=== PATIENT | male | born 1965 | race American Indian/Alaskan Native ===

== ENCOUNTER 2018-11-02 01:11 | Inpatient (IN) | payer OTHER ==
[2018-11-02 01:56] LABS: HEMOGLOBIN 13.8 g/dL (14.0-18.0); MEAN CELL VOLUME 87.6 fl (80.0-105.0); MEAN CORPUSCULAR HEMOGLOBIN 31.2 pg (25.0-35.0); MEAN CORPUSCULAR HGB CONC 35.7 g/dl (31.0-37.0); MEAN PLATELET VOLUME 8.8 fl (7.0-11.0); RBC 4.42 10^6/uL (3.5-6.1); RED CELL DISTRIBUTION WIDTH 12.1 % (11.5-14.5); WHITE BLOOD COUNT 8.3 10^3/uL (4.5-11.0)
[2018-11-02 02:07] LABS: ALB/GLOB RATIO 1.2 (1.1-1.8); ALBUMIN 3.7 g/dL (3.0-4.8); ALT/SGPT 37 U/L (7-56); AST/SGOT 31 U/L (17-59); BLOOD UREA NITROGEN 11 mg/dL (7-21); CALCIUM 8.5 mg/dL (8.4-10.5); GFR NON-AFRICAN AMERICAN > 60; LIPASE 59 U/L (23-300)
--- NOTE | 2018-11-02 02:09 | ED PDOC ---
Arrival/HPI - General Chief Complaint: Abdominal Pain Time Seen by Provider: 11/02/18 01:21 Historian: Patient - History of Present Illness Narrative History of Present Illness (Text): 11/02/18 02:04 53 year old male, whose past medical history includes esophagitis, presents to the emergency department with left lower abdominal discomfort, for a few days. Patient denies any associated nausea or vomiting. Patient informs of possible low grade fever earlier. Patient states last bowel movement was yesterday. Patient denies any chest pain, shortness of breath, back pain, urinary symptoms, headache, dizziness, or any other complaint. Time/Duration: < week Symptom Onset: Gradual Symptom Course: Unchanged Quality: Aching Activities at Onset: Light Context: Home Past Medical History - Provider Review Nursing Documentation Reviewed: Yes - Infectious Disease Hx of Infectious Diseases: None - Tetanus Immunization Tetanus Immunization: Unknown - Cardiac Hx Pacemaker: No - Pulmonary Hx Respiratory Disorders: Yes (Smokes 1pk/day) Hx Asthma: No Hx Bronchitis: No Hx Chronic Obstructive Pulmonary Disease (COPD): No Hx Emphysema: No Hx Pneumonia: No Hx Respiratory Aspiration: No Hx Respiratory Tract Infection: No Hx Sleep Apnea: No Hx Tuberculosis: No - Neurological Hx Paralysis: No - HEENT Hx HEENT Disorder: Yes (wears glasses) Hx Blind: No Hx Cataracts: No Hx Deafness: No Hx Difficulty Chewing: No Hx Epistaxis: No Hx Glaucoma: No Hx Macular Degeneration: No - Renal Hx Renal Disorder: No Hx Dialysis: No Hx Kidney Stones: No Hx Neurogenic Bladder: No Hx Pyelonephritis: No Hx Renal Cancer: No Hx Renal Failure: No - Endocrine/Metabolic Hx Endocrine Disorders: No Hx Adrenal Cancer: No Hx Diabetes Insipidus: No Hx Diabetes Mellitus Type 1: No Hx Diabetes Mellitus Type 2: No Hx Hyperthyroidism: No Hx Hypothyroidism: No Hx Systemic Lupus Erythematosus: No - Hematological/Oncological Hx Blood Transfusions: No Hx Blood Transfusion Reaction: No - Integumentary Hx Dermatological Disorder: No Hx Basal Cell Carcinoma: No Hx Eczema: No Hx Melanoma: No Hx Psoriasis: No Hx Squamous Cell Carcinoma: No - Musculoskeletal/Rheumatological Hx Musculoskeletal Disorders: Yes - Gastrointestinal Hx Gastrointestinal Disorders: Yes (bloating and gas) Hx Colostomy: No Hx Crohn's Disease: No Hx Diverticulitis: No Hx Gall Bladder Disease: No Hx Gastroesophageal Reflux: Yes Hx Gastrointestinal Ulcer: No Hx Ileostomy: No Hx Liver Failure: No Hx Pancreatitis: No HX Swallowing Problems: No - Genitourinary/Gynecological Hx Genitourinary Disorders: No Hx Hematuria: No Hx Incontinence: No Hx Prostate Problems: No Hx Sexually Transmitted Diseases: No Hx Urinary Tract Infection: No - Psychiatric Hx Emotional Abuse: No Hx Physical Abuse: No Hx Substance Use: Yes (COCAINE USE IN THE ) - Past Surgical History Past Surgical History: No Previous - Surgical History Hx Amputation: No Hx Appendectomy: No Hx Cardiac Catheterization: No Hx Cholecystectomy: No Hx Coronary Stent: No Hx Gastric Bypass Surgery: No Hx Hysterectomy: No Hx Inguinal Hernia Repair: No Hx Joint Replacement: No Hx Kidney Transplant: No Hx Liver Transplant: No Hx Mastectomy: No Hx Musculoskeletal Surgery: No Hx Open Heart Surgery: No Hx Orthopedic Surgery: No Hx Splenectomy: No Hx Valve Replacement: No - Anesthesia Hx Anesthesia Reactions: No Hx Malignant Hyperthermia: No - Suicidal Assessment Feels Threatened In Home Enviroment: No Family/Social History - Physician Review Nursing Documentation Reviewed: Yes Family/Social History: No Known Family HX Smoking Status: Heavy Smoker > 10 Cigarettes Daily Hx Alcohol Use: Yes (1/2 BOTTLE WINE PER DAY, NOW ONLY OCCASIONAL SINCE NEW YEARS) Frequency of alcohol use: Daily Hx Substance Use: Yes (COCAINE USE IN THE ) Substance used: cocaine Allergies/Home Meds Allergies/Adverse Reactions: Allergies No Known Allergies Allergy (Verified 02/06/16 10:36) Home Medications: Home Meds Medication Instructions Recorded Confirmed Omeprazole 40 mg PO DAILY 04/07/16 07/09/16 DiphenhydrAMINE [Benadryl] 1 tab PO Q8H PRN 07/09/16 07/09/16 Review of Systems - Physician Review All systems were reviewed & negative as marked: Yes - Review of Systems Constitutional: Fevers. absent: Night Sweats Respiratory: absent: SOB Cardiovascular: absent: Chest Pain Gastrointestinal: Abdominal Pain. absent: Nausea, Vomiting Genitourinary Male: Normal. absent: Dysuria, Urinary Output Changes Neurological: absent: Headache, Dizziness Physical Exam Vital Signs Reviewed: Yes Vital Signs Temp Pulse Resp BP Pulse Ox 11/02/18 01:24 98.4 F 78 18 153/74 H 97 Temperature: Afebrile Blood Pressure: Hypertensive Pulse: Regular Respiratory Rate: Normal Appearance: Positive for: Well-Appearing, Non-Toxic, Comfortable Pain Distress: None Mental Status: Positive for: Alert and Oriented X 3 - Systems Exam Head: Present: Atraumatic, Normocephalic Pupils: Present: PERRL Extroacular Muscles: Present: EOMI Conjunctiva: Present: Normal Mouth: Present: Moist Mucous Membranes Neck: Present: Normal Range of Motion Respiratory/Chest: Present: Clear to Auscultation, Good Air Exchange. No: Respiratory Distress, Accessory Muscle Use Cardiovascular: Present: Regular Rate and Rhythm, Normal S1, S2. No: Murmurs Abdomen: Present: Tenderness (Palpable tenderness to LLQ), Normal Bowel Sounds, Guarding (Voluntary guarding). No: Distention, Peritoneal Signs Back: Present: Normal Inspection. No: CVA Tenderness Upper Extremity: Present: Normal Inspection. No: Cyanosis, Edema Lower Extremity: Present: Normal Inspection. No: Edema Neurological: Present: GCS=15, CN II-XII Intact, Speech Normal Skin: Present: Warm, Dry, Normal Color. No: Rashes Psychiatric: Present: Alert, Oriented x 3, Normal Insight, Normal Concentration Medical Decision Making ED Course and Treatment: 11/02/18 02:11 Impression: 53 year old male presents with LLQ pain. Plan: -- CT ABD and Pelvis -- Reassess and disposition Prior Visits: Notes and results from previous visits were reviewed. Progress Notes: 11/02/18 04:32 T SCAN OF THE ABDOMEN AND PELVIS WITH CONTRAST. CLINICAL HISTORY: Lower abdominal pain. TECHNIQUE: Multiple axial and coronal CT images were obtained through the abdomen and pelvis after administration of intravenous contrast material. COMPARISON: 02/06/2016 11:16 AM EDT: CT\SD\SR: ANGIOGRAPHY DISECTION PROTOCOL COMMENTS: Mild prostatomegaly. Prostatic calcifications are noted. Mild diffuse thickening of the bladder. Colonic diverticulosis. Acute proximal sigmoid diverticulitis without perforation or abscess formation. The liver is of uniform attenuation without mass or defect. There is no intra or extrahepatic biliary ductal dilatation. The spleen is normal. The gallbladder is within normal limits. The pancreas is of normal contour and attenuation characteristics. There is no evidence of adrenal mass. Both kidneys demonstrate prompt and equal nephrograms. The kidneys are normal in size, shape and configuration. There is no evidence of renal or ureteral mass. No renal or ureteral calculi are identified. There is no hydroureter or hydronephrosis. No evidence for appendicitis. No evidence for small or large bowel obstruction. There is no evidence of abdominal ascites or lymphadenopathy. There is no evidence of intrinsic or extrinsic bladder mass. There is no pelvic ascites or lymphadenopathy. Images of the lung bases show no evidence of pleural or parenchymal mass. There are no pleural effusions. The bony structures are free of lytic or blastic lesions. IMPRESSION: Mild prostatomegaly. Prostatic calcifications are noted. Mild diffuse thickening of the bladder. Colonic diverticulosis. Acute proximal sigmoid diverticulitis without perforation or abscess formation. Thank you for your kind referral of this patient. Electronically signed on November 02, 2018 4:22:48 AM EDT by: Ciaran Bateman M.D., Certified by ABR, MSK, Neuroradiology 11/02/18 04:47 Spoke with durable medical equipment repairer and house doctor, Dr Dawn, who accepts to the hospitalist service. - RAD Interpretation Radiology Orders: 11/02/18 01:40 ABD & PELVIS IV CONTRAST ONLY [CT] Stat - Scribe Statement The provider has reviewed the documentation as recorded by the Cristoibekta Davis Provider Scribe Attestation: All medical record entries made by the Scribe were at my direction and personally dictated by me. I have reviewed the chart and agree that the record accurately reflects my personal performance of the history, physical exam, medical decision making, and the department course for this patient. I have also personally directed, reviewed, and agree with the discharge instructions and disposition. Disposition/Present on Arrival - Present on Arrival Any Indicators Present on Arrival: No History of DVT/PE: No History of Uncontrolled Diabetes: No Urinary Catheter: No History of Decub. Ulcer: No History Surgical Site Infection Following: None - Disposition Have Diagnosis and Disposition been Completed?: Yes Diagnosis: Diverticulitis Disposition: HOSPITALIZED Disposition Time: 04:33 Patient Plan: Admission Patient Problems: Current Active Problems Problem Status Onset Diverticulitis Acute Condition: STABLE
[2018-11-02] MEDS ORDERED: Iohexol 350 MG/100 ML VIAL ONE (02:21)
[2018-11-02] MEDS ORDERED: Sodium Chloride 0.9% 1,000 ML IV STA (03:19)
[2018-11-02] MEDS ORDERED: Piperacillin/Tazobact 3.375 gm 100 ML IV STA (04:31)
--- NOTE | 2018-11-02 04:48 | CP.PCM.HP ---
<Andry Hardin - Last Filed: 11/02/18 06:54> History of Present Illness - History of Present Illness History of Present Illness: Andry Hardin, PGY1 H&P for Dr. Dawn cc: "LLQ pain for a few days" Patient is a 53 year old male, whose past medical history includes Esophagitis presents to the emergency department with left lower quadrant abdominal pain that has been going on for a few days. He says he was also constipated for the past few days. He denies any nausea or vomiting. Patient says he has not experienced these symptoms before. He subjectively endorses low grade fever as well. He says last bowel movement was on Wednesday. Patient says he had a EGD/colonoscopy in the past (2 years ago) in which findings were normal. However, patient is not the best historian in regards to his medical history. Patient says he is due for a colonoscopy soon. Patient [place] [facility] [place] He has only come for ED visits for nausea and abdominal pain. A full 12 point ROS was conducted and unremarkable except as stated above. PMHx: Esophagitis PSHx: testicular cyst removal (1 year ago) Meds: omeprazole 40mg daily Allergies: NKDA SocialHx: previous cocaine use (many years ago) but now denies illicit drug use. Denies EtOH use. Denies smoking. FamHx: father from prostate cancer Present on Admission - Present on Admission Any Indicators Present on Admission: No Review of Systems - Review of Systems All systems: reviewed and no additional remarkable complaints except (as per HPI) Past Patient History - Infectious Disease Hx of Infectious Diseases: None - Tetanus Immunizations Tetanus Immunization: Unknown - Past Social History Smoking Status: Heavy Smoker > 10 Cigarettes Daily - CARDIAC Hx Pacemaker: No - PULMONARY Hx Respiratory Disorders: Yes (Smokes 1pk/day) Hx Asthma: No Hx Bronchitis: No Hx Chronic Obstructive Pulmonary Disease (COPD): No Hx Emphysema: No Hx Pneumonia: No Hx Respiratory Aspiration: No Hx Respiratory Tract Infection: No Hx Sleep Apnea: No Hx Tuberculosis: No - NEUROLOGICAL Hx Paralysis: No - HEENT Hx HEENT Problems: Yes (wears glasses) Hx Blind: No Hx Cataracts: No Hx Deafness: No Hx Difficulty Chewing: No Hx Epistaxis: No Hx Glaucoma: No Hx Macular Degeneration: No - RENAL Hx Chronic Kidney Disease: No Hx Dialysis: No Hx Kidney Stones: No Hx Neurogenic Bladder: No Hx Pyelonephritis: No Hx Renal (Kidney) Cancer: No Hx Renal Failure: No - ENDOCRINE/METABOLIC Hx Endocrine Disorders: No Hx Adrenal Cancer: No Hx Diabetes Insipidus: No Hx Diabetes Mellitus Type 1: No Hx Diabetes Mellitus Type 2: No Hx Hyperthyroidism: No Hx Hypothyroidism: No Hx Systemic Lupus Erythematosus: No - HEMATOLOGICAL/ONCOLOGICAL Hx Blood Transfusions: No Hx Blood Transfusion Reaction: No - INTEGUMENTARY Hx Dermatological Problems: No Hx Basil Cell: No Hx Eczema: No Hx Melanoma: No Hx Psoriasis: No Hx Squamous Cell: No - MUSCULOSKELETAL/RHEUMATOLOGICAL Hx Musculoskeletal Disorders: Yes - GASTROINTESTINAL Hx Gastrointestinal Disorders: Yes (bloating and gas) Hx Colostomy: No Hx Crohn's Disease: No Hx Diverticulitis: No Hx Gall Bladder Disease: No Hx Gastroesophageal Reflux: Yes Hx Ileostomy: No Hx Liver Failure: No Hx Pancreatitis: No HX Swallowing Problems: No - GENITOURINARY/GYNECOLOGICAL Hx Genitourinary Disorders: No Hx Hematuria: No Hx Incontinence: No Hx Prostate Problems: No Hx Sexually Transmitted Disorders: No Hx Urinary Tract Infection: No - PSYCHIATRIC Hx Emotional Abuse: No Hx Physical Abuse: No Hx Substance Use: Yes (COCAINE USE IN THE ) - SURGICAL HISTORY Hx Amputation: No Hx Appendectomy: No Hx Cardiac Catheterization: No Hx Cholecystectomy: No Hx Coronary Stent: No Hx Gastric Bypass Surgery: No Hx Hysterectomy: No Hx Joint Replacement: No Hx Kidney Transplant: No Hx Liver Transplant: No Hx Mastectomy: No Hx Musculoskeletal Surgery: No Hx Open Heart Surgery: No Hx Orthopedic Surgery: No Hx Splenectomy: No Hx Valve Replacement: No - ANESTHESIA Hx Anesthesia Reactions: No Hx Malignant Hyperthermia: No Meds Allergies/Adverse Reactions: Allergies Allergy/AdvReac Type Severity Reaction Status Date / Time No Known Allergies Allergy Verified 02/06/16 10:36 Physical Exam - Constitutional Appears: No Acute Distress - Head Exam Head Exam: ATRAUMATIC, NORMAL INSPECTION, NORMOCEPHALIC - Eye Exam Eye Exam: EOMI, Normal appearance - ENT Exam ENT Exam: Mucous Membranes Moist - Respiratory Exam Respiratory Exam: Clear to Auscultation Bilateral. absent: Chest Wall Tenderness, Rales, Rhonchi, Wheezes - Cardiovascular Exam Cardiovascular Exam: RRR, +S1, +S2 - GI/Abdominal Exam GI & Abdominal Exam: Normal Bowel Sounds, Soft, Tenderness (Lower abdominal tenderness; L > R ). absent: Firm, Guarding, Rebound, Rigid - Extremities Exam Extremities exam: Positive for: normal capillary refill, normal inspection, pedal pulses present - Back Exam Back exam: NORMAL INSPECTION - Neurological Exam Neurological exam: Alert, CN II-XII Intact, Oriented x3 - Psychiatric Exam Psychiatric exam: Normal Affect, Normal Mood - Skin Skin Exam: Dry, Intact, Normal Color, Warm Results - Vital Signs Recent Vital Signs: Last Vital Signs Temp 98.4 F 11/02/18 01:24 Pulse 78 11/02/18 01:24 Resp 18 11/02/18 01:24 BP 153/74 H 11/02/18 01:24 Pulse Ox 97 11/02/18 01:24 - Labs Result Diagrams: 11/02/18 01:47 11/02/18 01:47 Labs: Laboratory Results - last 24 hr 11/02/18 11/02/18 01:47 01:47 WBC 8.3 RBC 4.42 Hgb 13.8 L Hct 38.7 L MCV 87.6 MCH 31.2 MCHC 35.7 RDW 12.1 Plt Count 147 MPV 8.8 Sodium 137 Potassium 3.9 Chloride 105 Carbon Dioxide 26 Anion Gap 10 BUN 11 Creatinine 0.9 Est GFR ( Amer) > 60 Est GFR (Non-Af Amer) > 60 Random Glucose 109 Calcium 8.5 Total Bilirubin 0.6 AST 31 ALT 37 Alkaline Phosphatase 90 Total Protein 6.9 Albumin 3.7 Globulin 3.2 Albumin/Globulin Ratio 1.2 Lipase 59 Assessment & Plan - Assessment and Plan (Free Text) Assessment: Patient is a 53 year old male, whose past medical history includes GERD presents to the emergency department with left lower quadrant abdominal pain that has been going on for a few days. Plan: LLQ pain 2/2 Diverticulitis - Ceftriaxone 1g IVPB daily - Metronidazole 500mg IVPB q8 - No leukocytosis or fevers at this time - Toradol 15mg IVP q6 prn for moderate pain control - PTX 40mg IVP daily - NPO - IVF NS @ 100 cc/hr - BCx - GI consulted (Dr. Bonner) - CT A/P w/ contrast:Mild prostatomegaly.Prostatic calcifications are noted.Mild diffuse thickening of the bladder.Colonic diverticulosis. Acute proximal sigmoid diverticulitis without perforation or abscess formation. ppx: - scd - ptx Diet: NPO Dispo: will admit patient to med/surg. Follow up GI recs for acute di verticulitis. Case was discussed and reviewed with Attending Physician, Dr. Dawn <Snehal Dawn - Last Filed: 11/02/18 07:28> Results - Vital Signs Recent Vital Signs: Last Vital Signs Temp 98.4 F 11/02/18 01:24 Pulse 64 11/02/18 05:42 Resp 20 11/02/18 06:30 BP 127/73 11/02/18 05:42 Pulse Ox 96 11/02/18 05:42 - Labs Result Diagrams: 11/02/18 01:47 11/02/18 01:47 Labs: Laboratory Results - last 24 hr 11/02/18 11/02/18 01:47 01:47 WBC 8.3 RBC 4.42 Hgb 13.8 L Hct 38.7 L MCV 87.6 MCH 31.2 MCHC 35.7 RDW 12.1 Plt Count 147 MPV 8.8 Sodium 137 Potassium 3.9 Chloride 105 Carbon Dioxide 26 Anion Gap 10 BUN 11 Creatinine 0.9 Est GFR ( Amer) > 60 Est GFR (Non-Af Amer) > 60 Random Glucose 109 Calcium 8.5 Total Bilirubin 0.6 AST 31 ALT 37 Alkaline Phosphatase 90 Total Protein 6.9 Albumin 3.7 Globulin 3.2 Albumin/Globulin Ratio 1.2 Lipase 59 Attending/Attestation - Attestation I have personally seen and examined this patient.: Yes I have fully participated in the care of the patient.: Yes I have reviewed all pertinent clinical information: Yes Notes (Text): 11/02/18 07:26 Pt seen,case discussed in detail with the resident. Agree with documentation,assessment and plan of treatment.
[2018-11-02 06:58] VITALS: BMI 31.0
--- NOTE | 2018-11-02 08:12 | CT ---
Date of service: 11/02/2018 PROCEDURE: CT Abdomen and Pelvis with contrast HISTORY: left lower abdominal pain COMPARISON: None. TECHNIQUE: Intravenous contrast dose: 100 cc Omnipaque 350 Radiation dose: Total exam DLP = 900.52 mGy-cm. This CT exam was performed using one or more of the following dose reduction techniques: Automated exposure control, adjustment of the mA and/or kV according to patient size, and/or use of iterative reconstruction technique. FINDINGS: LOWER THORAX: Unremarkable. LIVER: Hepatic steatosis. No focal masses. No intrahepatic bile duct dilatation or perihepatic ascites. GALLBLADDER AND BILE DUCTS: Unremarkable. PANCREAS: Unremarkable. No gross lesion or ductal dilatation. SPLEEN: Splenomegaly, orthogonal measurements 7.8 x 16.2 cm. ADRENALS: Unremarkable. No mass. KIDNEYS AND URETERS: Unremarkable. No hydronephrosis. No solid mass. VASCULATURE: Unremarkable. No aortic aneurysm. No atherosclerotic calcification or mural plaque present. BOWEL: Severe diverticulitis affecting approximately 12 cm segment of the distal descending colon and sigmoid. Sparing of the distal sigmoid, unremarkable rectum. Perforations along the mesenteric and anti mesenteric border without significant loculated air, free air or drainable collection. APPENDIX: Normal appendix. PERITONEUM: Unremarkable. No free fluid. No free air. LYMPH NODES: Unremarkable. No enlarged lymph nodes. BLADDER: Unremarkable. REPRODUCTIVE: Unremarkable. BONES: No acute fracture. OTHER FINDINGS: None. IMPRESSION: Acute diverticulitis distal descending colon and proximal sigmoid colon. Micro perforations. No drainable collection, significant loculated air or free air. Splenomegaly. Concordant results (preliminary interpretation) provided by [employer]. Procedure Completed: :29 Preliminary Report: Interpreted and electronically signed: 04:22. Final Interpretation: 08:08.
[2018-11-02] MEDS: metroNIDAZOLE IV 500 mg/100 ml 500 MG/100 ML BAG IVPB SCH ×3 (08:20→21:33)
[2018-11-02] MEDS: cefTRIAXone 1 gm 1 GM/100 ML BAG IVPB SCH (10:12)
--- NOTE | 2018-11-02 11:54 | CP.PCM.CON ---
History of Present Illness - History of Present Illness History of Present Illness: SURGERY CONSULT NOTE FOR DR. WATTS Reason: Acute diverticulitis with microperforation 53M w/ PMHx of GERD presents to the hospital with abdominal pain, localized to the left lower quadrant. Patient describes the pain as intermittent, sharp and rated at a 10/10. Patient states that the pain began 3 days ago, and has never occurred in the past. Patient stated that he was constipated when the pain first began so he attempted to use OTC stool softener. He states that he has only had episodes of nonbloody diarrhea since then and denies passing any formed stools. Patient endorses one bout of nausea and non-bloody vomiting. Patient denies fevers, chills. Patient states he had a colonoscopy 2 years ago and states it was normal. SocHx: Hx of cocaine abuse. Admits to drinking 1 wine bottle per day, 1 ppd smoker. MedHx: GERD All: NKDA SurgHx: Testicular cyst removal FamHx: DM and HTN in maternal and paternal side of family. Medications: Omeprazole 40 mg. Review of Systems - Review of Systems All systems: reviewed and no additional remarkable complaints except Past Patient History - Infectious Disease Hx of Infectious Diseases: None - Tetanus Immunizations Tetanus Immunization: Unknown - Past Social History Smoking Status: Heavy Smoker > 10 Cigarettes Daily - CARDIAC Hx Pacemaker: No - PULMONARY Hx Respiratory Disorders: Yes (Smokes 1pk/day) Hx Asthma: No Hx Bronchitis: No Hx Chronic Obstructive Pulmonary Disease (COPD): No Hx Emphysema: No Hx Pneumonia: No Hx Respiratory Aspiration: No Hx Respiratory Tract Infection: No Hx Sleep Apnea: No Hx Tuberculosis: No - NEUROLOGICAL Hx Paralysis: No - HEENT Hx HEENT Problems: Yes (wears glasses) Hx Blind: No Hx Cataracts: No Hx Deafness: No Hx Difficulty Chewing: No Hx Epistaxis: No Hx Glaucoma: No Hx Macular Degeneration: No - RENAL Hx Chronic Kidney Disease: No Hx Dialysis: No Hx Kidney Stones: No Hx Neurogenic Bladder: No Hx Pyelonephritis: No Hx Renal (Kidney) Cancer: No Hx Renal Failure: No - ENDOCRINE/METABOLIC Hx Endocrine Disorders: No Hx Adrenal Cancer: No Hx Diabetes Insipidus: No Hx Diabetes Mellitus Type 1: No Hx Diabetes Mellitus Type 2: No Hx Hyperthyroidism: No Hx Hypothyroidism: No Hx Systemic Lupus Erythematosus: No - HEMATOLOGICAL/ONCOLOGICAL Hx Blood Transfusions: No Hx Blood Transfusion Reaction: No - INTEGUMENTARY Hx Dermatological Problems: No Hx Basil Cell: No Hx Eczema: No Hx Melanoma: No Hx Psoriasis: No Hx Squamous Cell: No - MUSCULOSKELETAL/RHEUMATOLOGICAL Hx Musculoskeletal Disorders: Yes - GASTROINTESTINAL Hx Gastrointestinal Disorders: Yes (bloating and gas) Hx Colostomy: No Hx Crohn's Disease: No Hx Diverticulitis: No Hx Gall Bladder Disease: No Hx Gastroesophageal Reflux: Yes Hx Ileostomy: No Hx Liver Failure: No Hx Pancreatitis: No HX Swallowing Problems: No - GENITOURINARY/GYNECOLOGICAL Hx Genitourinary Disorders: No Hx Hematuria: No Hx Incontinence: No Hx Prostate Problems: No Hx Sexually Transmitted Disorders: No Hx Urinary Tract Infection: No - PSYCHIATRIC Hx Emotional Abuse: No Hx Physical Abuse: No Hx Substance Use: Yes (COCAINE USE IN THE ) - SURGICAL HISTORY Hx Amputation: No Hx Appendectomy: No Hx Cardiac Catheterization: No Hx Cholecystectomy: No Hx Coronary Stent: No Hx Gastric Bypass Surgery: No Hx Hysterectomy: No Hx Joint Replacement: No Hx Kidney Transplant: No Hx Liver Transplant: No Hx Mastectomy: No Hx Musculoskeletal Surgery: No Hx Open Heart Surgery: No Hx Orthopedic Surgery: No Hx Splenectomy: No Hx Valve Replacement: No - ANESTHESIA Hx Anesthesia Reactions: No Hx Malignant Hyperthermia: No Meds Allergies/Adverse Reactions: Allergies Allergy/AdvReac Type Severity Reaction Status Date / Time No Known Allergies Allergy Verified 02/06/16 10:36 - Medications Medications: Current Medications Metronidazole (Flagyl) 500 mg in 100 mls @ 100 mls/hr IVPB Q8 [facility]; Protocol Last Admin: 11/02/18 08:20 Dose: 100 mls/hr Ceftriaxone Sodium (Rocephin 1 Gram Ivpb) 1 gm in 100 mls @ 100 mls/hr IVPB DAILY [facility]; Protocol Last Admin: 11/02/18 10:12 Dose: 100 mls/hr Sodium Chloride (Sodium Chloride 0.9%) 1,000 mls @ 100 mls/hr IV .Q10H [facility] Ketorolac Tromethamine (Toradol) 15 mg IVP Q6H PRN PRN Reason: Pain, moderate (4-7) Pantoprazole Sodium (Protonix Inj) 40 mg IVP DAILY [facility] Last Admin: 11/02/18 10:11 Dose: 40 mg Physical Exam - Constitutional Appears: Non-toxic, No Acute Distress - Eye Exam Eye Exam: EOMI, PERRL - ENT Exam ENT Exam: Mucous Membranes Moist - Respiratory Exam Respiratory Exam: Clear to Auscultation Bilateral, NORMAL BREATHING PATTERN - Cardiovascular Exam Cardiovascular Exam: REGULAR RHYTHM, +S1, +S2 - GI/Abdominal Exam GI & Abdominal Exam: Soft, Tenderness (moderate left lower quadrant tenderness ). absent: Distended, Firm, Guarding, Rebound, Rigid - Extremities Exam Extremities exam: Negative for: pedal edema, tenderness - Neurological Exam Neurological exam: Alert, Oriented x3 - Skin Skin Exam: Dry, Intact, Normal Color, Warm Results - Vital Signs Recent Vital Signs: Last Vital Signs Temp 98.4 F 11/02/18 06:00 Pulse 71 11/02/18 06:00 Resp 20 11/02/18 06:30 BP 133/76 11/02/18 06:00 Pulse Ox 97 11/02/18 06:00 - Labs Result Diagrams: 11/02/18 01:47 11/02/18 01:47 Labs: Laboratory Results - last 24 hr 11/02/18 11/02/18 01:47 01:47 WBC 8.3 RBC 4.42 Hgb 13.8 L Hct 38.7 L MCV 87.6 MCH 31.2 MCHC 35.7 RDW 12.1 Plt Count 147 MPV 8.8 Sodium 137 Potassium 3.9 Chloride 105 Carbon Dioxide 26 Anion Gap 10 BUN 11 Creatinine 0.9 Est GFR ( Amer) > 60 Est GFR (Non-Af Amer) > 60 Random Glucose 109 Calcium 8.5 Total Bilirubin 0.6 AST 31 ALT 37 Alkaline Phosphatase 90 Total Protein 6.9 Albumin 3.7 Globulin 3.2 Albumin/Globulin Ratio 1.2 Lipase 59 Assessment & Plan - Assessment and Plan (Free Text) Assessment: 53M presents with abdominal pain 2/2 acute sigmoid diverticulitis w/ microperforations, no fluid collection Plan: - Strict NPO - IVF - Pain contorl - Anti-emetics - IV Abx - Serial abdominal exams - Discussed with Dr. Laura Daugherty, PGY3
--- NOTE | 2018-11-02 12:08 | CP.PCM.CON ---
<Isaac Anguiano - Last Filed: 11/02/18 17:39> History of Present Illness - History of Present Illness History of Present Illness: PGY6 GI Fellow Consult Note Patient is a 53yo male with PMHx significant for diverticulosis, vertigo, questionable BPH, daily EtOH use, tobacco use who presented to the ED with abdominal pain. The patient states that for the last 3 days he has had progressively worsening LLQ abdominal pain. Pain is stabbign in nature and was 10/10 at its worst intensity prompting him to go to the ED for evaluation. On admission he underwent CT of the abdomen revealing descending and sigmoid diverticulitis with microperforation. No abscess or collection is noted on imaging. Patient notes he had intermittent fevers for the last several weeks but denies any other symptosms such as nausea, vomiting, weight loss, change in bowel habits, melena, hematochezia. Pain is 20-30% improved today and patient admits to increase in appetite. 12 system ROS performed and negative except where stated PMHx: See HPI PSHx: unknown procedure performed on prostate FHx: Father - prostate cancer Social: +tobacco use (1ppd), +EtOH use (1 bottle wine daily), denies illicit drug use Endo: EGD - 07/2016 - Irregular Z line, hiatal hernia, Schatzki ring, gastritis EGD/Colon - 04/2016 - Esophagitis, irregular z-line; diverticulosis, internal hemorrhoids, hyperplastic rectal polyps Past Patient History - Infectious Disease Hx of Infectious Diseases: None - Tetanus Immunizations Tetanus Immunization: Unknown - Past Social History Smoking Status: Heavy Smoker > 10 Cigarettes Daily - CARDIAC Hx Pacemaker: No - PULMONARY Hx Respiratory Disorders: Yes (Smokes 1pk/day) Hx Asthma: No Hx Bronchitis: No Hx Chronic Obstructive Pulmonary Disease (COPD): No Hx Emphysema: No Hx Pneumonia: No Hx Respiratory Aspiration: No Hx Respiratory Tract Infection: No Hx Sleep Apnea: No Hx Tuberculosis: No - NEUROLOGICAL Hx Paralysis: No - HEENT Hx HEENT Problems: Yes (wears glasses) Hx Blind: No Hx Cataracts: No Hx Deafness: No Hx Difficulty Chewing: No Hx Epistaxis: No Hx Glaucoma: No Hx Macular Degeneration: No - RENAL Hx Chronic Kidney Disease: No Hx Dialysis: No Hx Kidney Stones: No Hx Neurogenic Bladder: No Hx Pyelonephritis: No Hx Renal (Kidney) Cancer: No Hx Renal Failure: No - ENDOCRINE/METABOLIC Hx Endocrine Disorders: No Hx Adrenal Cancer: No Hx Diabetes Insipidus: No Hx Diabetes Mellitus Type 1: No Hx Diabetes Mellitus Type 2: No Hx Hyperthyroidism: No Hx Hypothyroidism: No Hx Systemic Lupus Erythematosus: No - HEMATOLOGICAL/ONCOLOGICAL Hx Blood Transfusions: No Hx Blood Transfusion Reaction: No - INTEGUMENTARY Hx Dermatological Problems: No Hx Basil Cell: No Hx Eczema: No Hx Melanoma: No Hx Psoriasis: No Hx Squamous Cell: No - MUSCULOSKELETAL/RHEUMATOLOGICAL Hx Musculoskeletal Disorders: Yes - GASTROINTESTINAL Hx Gastrointestinal Disorders: Yes (bloating and gas) Hx Colostomy: No Hx Crohn's Disease: No Hx Diverticulitis: No Hx Gall Bladder Disease: No Hx Gastroesophageal Reflux: Yes Hx Ileostomy: No Hx Liver Failure: No Hx Pancreatitis: No HX Swallowing Problems: No - GENITOURINARY/GYNECOLOGICAL Hx Genitourinary Disorders: No Hx Hematuria: No Hx Incontinence: No Hx Prostate Problems: No Hx Sexually Transmitted Disorders: No Hx Urinary Tract Infection: No - PSYCHIATRIC Hx Emotional Abuse: No Hx Physical Abuse: No Hx Substance Use: Yes (COCAINE USE IN THE ) - SURGICAL HISTORY Hx Amputation: No Hx Appendectomy: No Hx Cardiac Catheterization: No Hx Cholecystectomy: No Hx Coronary Stent: No Hx Gastric Bypass Surgery: No Hx Hysterectomy: No Hx Joint Replacement: No Hx Kidney Transplant: No Hx Liver Transplant: No Hx Mastectomy: No Hx Musculoskeletal Surgery: No Hx Open Heart Surgery: No Hx Orthopedic Surgery: No Hx Splenectomy: No Hx Valve Replacement: No - ANESTHESIA Hx Anesthesia Reactions: No Hx Malignant Hyperthermia: No Meds Allergies/Adverse Reactions: Allergies Allergy/AdvReac Type Severity Reaction Status Date / Time No Known Allergies Allergy Verified 02/06/16 10:36 - Medications Medications: Current Medications Metronidazole (Flagyl) 500 mg in 100 mls @ 100 mls/hr IVPB Q8 [facility]; Protocol Last Admin: 11/02/18 08:20 Dose: 100 mls/hr Ceftriaxone Sodium (Rocephin 1 Gram Ivpb) 1 gm in 100 mls @ 100 mls/hr IVPB DAILY [facility]; Protocol Last Admin: 11/02/18 10:12 Dose: 100 mls/hr Sodium Chloride (Sodium Chloride 0.9%) 1,000 mls @ 100 mls/hr IV .Q10H [facility] Ketorolac Tromethamine (Toradol) 15 mg IVP Q6H PRN PRN Reason: Pain, moderate (4-7) Pantoprazole Sodium (Protonix Inj) 40 mg IVP DAILY [facility] Last Admin: 11/02/18 10:11 Dose: 40 mg Physical Exam - Constitutional Appears: Non-toxic, No Acute Distress - Eye Exam Eye Exam: EOMI, PERRL - ENT Exam ENT Exam: Mucous Membranes Moist - Respiratory Exam Respiratory Exam: Clear to Auscultation Bilateral. absent: Rales, Rhonchi, Wheezes - Cardiovascular Exam Cardiovascular Exam: RRR, +S1, +S2 - GI/Abdominal Exam GI & Abdominal Exam: Normal Bowel Sounds, Soft, Tenderness (LLQ). absent: Distended, Firm, Guarding, Organomegaly, Rigid - Extremities Exam Extremities exam: Positive for: normal inspection. Negative for: pedal edema - Neurological Exam Neurological exam: Alert, Oriented x3 - Psychiatric Exam Psychiatric exam: Normal Affect, Normal Mood - Skin Skin Exam: Dry, Warm Results - Vital Signs Recent Vital Signs: Last Vital Signs Temp 98.4 F 11/02/18 06:00 Pulse 71 11/02/18 06:00 Resp 20 11/02/18 06:30 BP 133/76 11/02/18 06:00 Pulse Ox 97 11/02/18 06:00 - Labs Result Diagrams: 11/02/18 01:47 11/02/18 01:47 Labs: Laboratory Results - last 24 hr 11/02/18 11/02/18 01:47 01:47 WBC 8.3 RBC 4.42 Hgb 13.8 L Hct 38.7 L MCV 87.6 MCH 31.2 MCHC 35.7 RDW 12.1 Plt Count 147 MPV 8.8 Sodium 137 Potassium 3.9 Chloride 105 Carbon Dioxide 26 Anion Gap 10 BUN 11 Creatinine 0.9 Est GFR ( Amer) > 60 Est GFR (Non-Af Amer) > 60 Random Glucose 109 Calcium 8.5 Total Bilirubin 0.6 AST 31 ALT 37 Alkaline Phosphatase 90 Total Protein 6.9 Albumin 3.7 Globulin 3.2 Albumin/Globulin Ratio 1.2 Lipase 59 Assessment & Plan - Assessment and Plan (Free Text) Assessment: Patient is a 53yo male with PMHx significant for diverticulosis, vertigo, questionable BPH, daily EtOH use, tobacco use who presented to the ED with abdominal pain -Descending/sigmoid diverticulitis complicated by microperforation -Hepatic steatosis - likely a result of chronic EtOH use -Chronic EtOH and tobacco use Plan: -CT reviewed - evidence for acute diverticulitits with microperforation; no fluid or abscess collection noted -Agree with antibiotic coverage - Flagyl/Ceftriaxone - will require ~10 day course -Surgical service consulted -Ongoing bowel rest for today; consideration to advance diet as tolerated if no plan for surgical intervention starting with liquid diet tomorrow if symptoms improve -EtOH and tobacco cessation stressed -Patient will benefit from colonoscopy for further evaluation ~8 weeks after resolution of current event - Date & Time Date: 11/02/18 Time: 09:00 <Tami Jules V - Last Filed: 11/02/18 22:01> Meds - Medications Medications: Current Medications Metronidazole (Flagyl) 500 mg in 100 mls @ 100 mls/hr IVPB Q8 [facility]; Protocol Last Admin: 11/02/18 21:33 Dose: 100 mls/hr Ceftriaxone Sodium (Rocephin 1 Gram Ivpb) 1 gm in 100 mls @ 100 mls/hr IVPB [facility]; Protocol Last Admin: 11/02/18 10:12 Dose: 100 mls/hr Sodium Chloride (Sodium Chloride 0.9%) 1,000 mls @ 100 mls/hr IV .Q10H [facility] Ketorolac Tromethamine (Toradol) 15 mg IVP Q6H PRN PRN Reason: Pain, moderate (4-7) Last Admin: 11/02/18 19:05 Dose: 15 mg Pantoprazole Sodium (Protonix Inj) 40 mg IVP DAILY [facility] Last Admin: 11/02/18 10:11 Dose: 40 mg Results - Vital Signs Recent Vital Signs: Last Vital Signs Temp 98.4 F 11/02/18 21:36 Pulse 69 11/02/18 21:36 Resp 20 11/02/18 21:36 BP 118/74 11/02/18 21:36 Pulse Ox 97 11/02/18 21:36 - Labs Result Diagrams: 11/02/18 01:47 11/02/18 01:47 Labs: Laboratory Results - last 24 hr 11/02/18 11/02/18 01:47 01:47 WBC 8.3 RBC 4.42 Hgb 13.8 L Hct 38.7 L MCV 87.6 MCH 31.2 MCHC 35.7 RDW 12.1 Plt Count 147 MPV 8.8 Sodium 137 Potassium 3.9 Chloride 105 Carbon Dioxide 26 Anion Gap 10 BUN 11 Creatinine 0.9 Est GFR ( Amer) > 60 Est GFR (Non-Af Amer) > 60 Random Glucose 109 Calcium 8.5 Total Bilirubin 0.6 AST 31 ALT 37 Alkaline Phosphatase 90 Total Protein 6.9 Albumin 3.7 Globulin 3.2 Albumin/Globulin Ratio 1.2 Lipase 59 Attending/Attestation - Attestation I have personally seen and examined this patient.: Yes I have fully participated in the care of the patient.: Yes I have reviewed all pertinent clinical information: Yes Notes (Text): The patient was seen and evaluated earlier. This is an addendum to the GI consultation report dictated by the fellow. Patient has complicated diverticul itis with the perforation and loculated air collection. Patient does have tenderness in the left lower quadrant. Patient need to be n.p.o. except medication Continue the IV antibiotics. Patient would require repeat CT in few days time before advancing to soft diet. 11/02/18 22:01
--- NOTE | 2018-11-02 14:47 | RAD ---
Date of service: 11/02/2018 HISTORY: abdominal pain COMPARISON: 02/06/2016 FINDINGS: LUNGS: No active pulmonary disease. PLEURA: No significant pleural effusion identified, no pneumothorax apparent. CARDIOVASCULAR: No atherosclerotic calcification present Normal. OSSEOUS STRUCTURES: No significant abnormalities. VISUALIZED UPPER ABDOMEN: Normal. OTHER FINDINGS: None. IMPRESSION: No active disease. No significant interval change compared to the prior examination(s).
--- NOTE | 2018-11-02 20:33 | CARD ---
APPROVED REPORT Date of service: 11/02/2018 EKG Measurement Heart [id number] <Conclusion> Normal sinus rhythm Nonspecific T wave abnormality Abnormal ECG
[2018-11-03] MEDS: metroNIDAZOLE IV 500 mg/100 ml 500 MG/100 ML BAG IVPB SCH ×3 (05:56→21:05)
[2018-11-03 07:24] LABS: BASO # 0.02 K/mm3 (0.0-2.0); BASO % 0.4 % (0.0-3.0); EOS # 0.1 (0.0-0.7); HEMOGLOBIN 12.3 g/dL (14.0-18.0); LYMPH # 1.1 (1.2-3.4); LYMPH % 21.5 % (22.0-35.0); MEAN CELL VOLUME 87.9 fl (80.0-105.0); MEAN CORPUSCULAR HEMOGLOBIN 30.4 pg (25.0-35.0); MEAN CORPUSCULAR HGB CONC 34.6 g/dl (31.0-37.0); MEAN PLATELET VOLUME 8.9 fl (7.0-11.0); MONO # 0.6 (0.1-0.6); MONO % 11.2 % (1.0-6.0); RBC 4.04 10^6/uL (3.5-6.1); RED CELL DISTRIBUTION WIDTH 12.1 % (11.5-14.5); WHITE BLOOD COUNT 5.1 10^3/uL (4.5-11.0)
[2018-11-03 07:47] LABS: ALB/GLOB RATIO 1.1 (1.1-1.8); ALBUMIN 3.2 g/dL (3.0-4.8); ALT/SGPT 32 U/L (7-56); AST/SGOT 20 U/L (17-59); BLOOD UREA NITROGEN 12 mg/dL (7-21); CALCIUM 8.1 mg/dL (8.4-10.5); GFR NON-AFRICAN AMERICAN > 60
--- NOTE | 2018-11-03 09:01 | CP.PCM.PN ---
Subjective - Date & Time of Evaluation Date of Evaluation: 11/03/18 Time of Evaluation: 06:45 - Subjective Subjective: General Surgery Dr. Sanchez Pt seen and examined @bedside. No acute events overnight. Pt reports significant improvement in abd pain. denies F/C, N/V, D/C. (+)flatus (-)BM. Objective - Vital Signs/Intake and Output Vital Signs (last 24 hours): Temp Pulse Resp BP Pulse Ox 97.5 F L 56 L 18 126/81 99 11/03/18 06:00 11/03/18 06:00 11/03/18 06:00 11/03/18 06:00 11/03/18 06:00 Intake and Output: 11/03/18 11/03/18 06:59 18:59 Intake Total 2400 Balance 2400 - Medications Medications: Current Medications Metronidazole (Flagyl) 500 mg in 100 mls @ 100 mls/hr IVPB Q8 [facility]; Protocol Last Admin: 11/03/18 05:56 Dose: 100 mls/hr Ceftriaxone Sodium (Rocephin 1 Gram Ivpb) 1 gm in 100 mls @ 100 mls/hr IVPB DAILY [facility]; Protocol Last Admin: 11/02/18 10:12 Dose: 100 mls/hr Sodium Chloride (Sodium Chloride 0.9%) 1,000 mls @ 100 mls/hr IV .Q10H [facility] Ketorolac Tromethamine (Toradol) 15 mg IVP Q6H PRN PRN Reason: Pain, moderate (4-7) Last Admin: 11/02/18 19:05 Dose: 15 mg Pantoprazole Sodium (Protonix Inj) 40 mg IVP DAILY [facility] Last Admin: 11/02/18 10:11 Dose: 40 mg - Labs Labs: 11/03/18 07:05 11/03/18 07:05 - Constitutional Appears: Non-toxic, No Acute Distress - Head Exam Head Exam: NORMAL INSPECTION - Eye Exam Eye Exam: Normal appearance - ENT Exam ENT Exam: Mucous Membranes Moist - Respiratory Exam Respiratory Exam: NORMAL BREATHING PATTERN. absent: Accessory Muscle Use, Respiratory Distress - Cardiovascular Exam Cardiovascular Exam: absent: Bradycardia, Tachycardia - GI/Abdominal Exam GI & Abdominal Exam: Soft, Tenderness (minimal TTP LLQ/Suprapubic). absent: Distended, Firm, Guarding, Rigid, Rebound - Extremities Exam Extremities Exam: Normal Inspection - Neurological Exam Neurological Exam: Alert, Awake, Oriented x3 - Psychiatric Exam Psychiatric exam: Normal Affect, Normal Mood - Skin Skin Exam: Dry, Intact, Normal Color, Warm Assessment and Plan - Assessment and Plan (Free Text) Assessment: 53 y/o M w/ abd pain 2/2 sigmoid diverticulitis w/ microperforation Plan: - cont IV Abx - maintanence IVF - cont pain management - Anti-emetics - likely advance to [facility] - f/u GI recs Pt discussed w/ Dr. Laura Bates PGY3
[2018-11-03] MEDS: cefTRIAXone 1 gm 1 GM/100 ML BAG IVPB SCH (10:24)
[2018-11-03] MEDS: Sodium Chloride 0.9% 1,000 ML IV SCH ×3 (10:30→21:05)
--- NOTE | 2018-11-03 14:39 | CP.PCM.PN ---
<Jesus Mays - Last Filed: 11/03/18 17:54> Subjective - Date & Time of Evaluation Date of Evaluation: 11/03/18 Time of Evaluation: 09:00 - Subjective Subjective: Jesus Mays DO PGY1 - Medicine Progress Pt. seen and examined at bedside this morning Feels significantly better; has increased appetite Pain 4/10; Does not have complaints of nausea/ vomiting/ diarrhea constipation Objective - Vital Signs/Intake and Output Vital Signs (last 24 hours): Temp Pulse Resp BP Pulse Ox 97.5 F L 56 L 18 126/81 99 11/03/18 06:00 11/03/18 06:00 11/03/18 06:00 11/03/18 06:00 11/03/18 06:00 Intake and Output: 11/03/18 11/03/18 06:59 18:59 Intake Total 2400 Balance 2400 - Medications Medications: Current Medications Metronidazole (Flagyl) 500 mg in 100 mls @ 100 mls/hr IVPB Q8 [facility]; Protocol Last Admin: 11/03/18 05:56 Dose: 100 mls/hr Ceftriaxone Sodium (Rocephin 1 Gram Ivpb) 1 gm in 100 mls @ 100 mls/hr IVPB DAILY [facility]; Protocol Last Admin: 11/03/18 10:24 Dose: 100 mls/hr Sodium Chloride (Sodium Chloride 0.9%) 1,000 mls @ 100 mls/hr IV .Q10H [facility] Last Admin: 11/03/18 10:30 Dose: 100 mls/hr Ketorolac Tromethamine (Toradol) 15 mg IVP Q6H PRN PRN Reason: Pain, moderate (4-7) Last Admin: 11/02/18 19:05 Dose: 15 mg Pantoprazole Sodium (Protonix Inj) 40 mg IVP DAILY [facility] Last Admin: 11/03/18 10:24 Dose: 40 mg - Labs Labs: 11/03/18 07:05 11/03/18 07:05 - Constitutional Appears: Well, Non-toxic, No Acute Distress - Head Exam Head Exam: ATRAUMATIC, NORMOCEPHALIC - Respiratory Exam Respiratory Exam: Clear to Ausculation Bilateral, NORMAL BREATHING PATTERN - Cardiovascular Exam Cardiovascular Exam: RRR. absent: Murmur - GI/Abdominal Exam GI & Abdominal Exam: Soft, Tenderness, Hyperactive Bowel Sounds - Extremities Exam Extremities Exam: Normal Capillary Refill. absent: Pedal Edema, Tenderness - Back Exam Back Exam: absent: CVA tenderness (L), CVA tenderness (R) - Neurological Exam Neurological Exam: Alert, Awake, Oriented x3 - Psychiatric Exam Psychiatric exam: Normal Affect - Skin Skin Exam: Dry, Intact, Normal Color, Warm Assessment and Plan - Assessment and Plan (Free Text) Assessment: 53M w/ PMH GERD presented [place] [facility] on [place] w/ CC of Abd Pain admitted for Diverticulitis Diverticulitis 11/02 - CT AP - Acute diverticulitis distal descending colon and proximal sigmoid colon. Micro perforations. No drainable collection, significant loculated air or free air. Splenomegaly. C/w Rocephin/ Flagyll Toradol PRN pain Protonix 40 IVP QDaily GI Following - NPO except meds ; Will require CT prior to advancing to soft diet Surgery Following - conservative management for now as per surgery; At this time patient is on CLD; Will ADAT - obtain CTAP within 1-2 days. Ppx: Scd Ptx Diet: NPO Dispo: Will continue inpatient management on med/surg at this time Patient was seen, examined, and discussed w/ attending Dr. Florin Mays DO PGY1 <Ellen Rahman - Last Filed: 11/04/18 13:43> Objective - Vital Signs/Intake and Output Vital Signs (last 24 hours): Temp Pulse Resp BP Pulse Ox 97.7 F 56 L 18 117/70 99 11/04/18 06:00 11/04/18 06:00 11/04/18 06:00 11/04/18 06:00 11/04/18 06:00 Intake and Output: 11/04/18 11/04/18 06:59 18:59 Intake Total 2940 Balance 2940 - Medications Medications: Current Medications Metronidazole (Flagyl) 500 mg in 100 mls @ 100 mls/hr IVPB Q8 [facility]; Protocol Last Admin: 11/04/18 05:43 Dose: 100 mls/hr Ceftriaxone Sodium (Rocephin 1 Gram Ivpb) 1 gm in 100 mls @ 100 mls/hr IVPB DAILY [facility]; Protocol Last Admin: 11/04/18 11:13 Dose: 100 mls/hr Sodium Chloride (Sodium Chloride 0.9%) 1,000 mls @ 100 mls/hr IV .Q10H [facility] Last Admin: 11/04/18 11:20 Dose: 100 mls/hr Ketorolac Tromethamine (Toradol) 15 mg IVP Q6H PRN PRN Reason: Pain, moderate (4-7) Last Admin: 11/02/18 19:05 Dose: 15 mg Pantoprazole Sodium (Protonix Inj) 40 mg IVP DAILY [facility] Last Admin: 11/04/18 10:09 Dose: 40 mg - Labs Labs: 11/04/18 07:00 11/04/18 07:00 Attending/Attestation - Attestation I have personally seen and examined this patient.: Yes I have fully participated in the care of the patient.: Yes I have reviewed all pertinent clinical information, including history, physical exam and plan: Yes Notes (Text): 11/04/18 13:36 Attending note; Patient seen and examined with resident. Patient's and family member by the bedside. Patient is alert and awake. Complaining of left lower quadrant pain. Denies any fevers, chills. Denies any nausea, vomiting. Denies any urinary, bowel symptoms. Patient had constipation for the past few days. Patient is a 53-year-old male with past medical history of GERD is admitted for left lower quadrant pain. 1. Left-sided abdominal pain; CT abdomen and pelvis showed Acute diverticulitis distal descending colon and proximal sigmoid colon. Micro perforations. No drainable collection, no significant loculated air or free air. Currently patient is n.p.o.. On IV fluids. On IV Rocephin and Flagyl. GI evaluation appreciated. patient had EGD and colonoscopy few years ago with Dr. Jules. EGD in 07/2016 - Irregular Z line, hiatal hernia, Schatzki ring, gastritis. EGD/Colon - 04/2016 - Esophagitis, irregular z-line; diverticulosis, internal hemorrhoids, hyperplastic rectal polyps. 2. Acute diverticulitis with microperforation ;surgery evaluation appreciated. No plan for surgical procedure at this time. 3. Active smoking; smoking cessation is strongly advised. 4. Chronic alcohol use; alcohol cessation is strongly advised. 5. GERD; continue IV Protonix. 6. Pain management with IV Toradol as needed. 7. Noncompliance with follow-up; patient agreed to follow-up with PMD and security sergeant upon discharge. Case discussed with GI in detail. Started on clear liquid diet. Repeat CT abdomen and pelvis before advancing diet. Diagnosis, treatment plan discussed with patient and patient's in detail.
--- NOTE | 2018-11-03 19:24 | CP.PCM.PN ---
Subjective - Date & Time of Evaluation Date of Evaluation: 11/03/18 Time of Evaluation: 09:45 - Subjective Subjective: Feels better still complains of tenderness in the left side of the abdomen Objective - Vital Signs/Intake and Output Vital Signs (last 24 hours): Temp Pulse Resp BP Pulse Ox 98 F 77 18 126/78 96 11/03/18 14:00 11/03/18 14:00 11/03/18 14:00 11/03/18 14:00 11/03/18 14:00 - Medications Medications: Current Medications Metronidazole (Flagyl) 500 mg in 100 mls @ 100 mls/hr IVPB Q8 [facility]; Protocol Last Admin: 11/03/18 15:01 Dose: 100 mls/hr Ceftriaxone Sodium (Rocephin 1 Gram Ivpb) 1 gm in 100 mls @ 100 mls/hr IVPB DAILY [facility]; Protocol Last Admin: 11/03/18 10:24 Dose: 100 mls/hr Sodium Chloride (Sodium Chloride 0.9%) 1,000 mls @ 100 mls/hr IV .Q10H [facility] Last Admin: 11/03/18 15:02 Dose: 100 mls/hr Ketorolac Tromethamine (Toradol) 15 mg IVP Q6H PRN PRN Reason: Pain, moderate (4-7) Last Admin: 11/02/18 19:05 Dose: 15 mg Pantoprazole Sodium (Protonix Inj) 40 mg IVP DAILY [facility] Last Admin: 11/03/18 10:24 Dose: 40 mg - Labs Labs: 11/03/18 07:05 11/03/18 07:05 - Constitutional Appears: No Acute Distress - Head Exam Head Exam: ATRAUMATIC, NORMOCEPHALIC - Eye Exam Eye Exam: EOMI, PERRL - ENT Exam ENT Exam: Mucous Membranes Moist - Neck Exam Neck Exam: Full ROM. absent: Lymphadenopathy - Respiratory Exam Respiratory Exam: Clear to Ausculation Bilateral, NORMAL BREATHING PATTERN. absent: Rales - Cardiovascular Exam Cardiovascular Exam: REGULAR RHYTHM, +S1, +S2. absent: JVD - GI/Abdominal Exam GI & Abdominal Exam: Soft, Tenderness, Normal Bowel Sounds. absent: Mass Additional comments: Tenderness mainly in the left lower quadrant no rebound or guarding - Extremities Exam Extremities Exam: Full ROM (This). absent: Calf Tenderness, Pedal Edema - Neurological Exam Neurological Exam: Alert, Awake, Oriented x3 Assessment and Plan - Assessment and Plan (Free Text) Assessment: Perforated diverticulum contained #2 GERD Plan: 1. Clear liquid diet 2. Continue the antibiotics 3. Would need repeat CT before advancing to solids 4. Elective colonoscopy after 4 to 6 weeks time
[2018-11-04] MEDS: metroNIDAZOLE IV 500 mg/100 ml 500 MG/100 ML BAG IVPB SCH ×3 (05:43→21:29)
[2018-11-04 07:10] LABS: BASO # 0.02 K/mm3 (0.0-2.0); BASO % 0.4 % (0.0-3.0); EOS # 0.1 (0.0-0.7); HEMOGLOBIN 12.3 g/dL (14.0-18.0); LYMPH % 23.1 % (22.0-35.0); MEAN CELL VOLUME 86.5 fl (80.0-105.0); MEAN CORPUSCULAR HEMOGLOBIN 30.3 pg (25.0-35.0); MEAN PLATELET VOLUME 8.7 fl (7.0-11.0); MONO # 0.5 (0.1-0.6); MONO % 12.1 % (1.0-6.0); RBC 4.06 10^6/uL (3.5-6.1); WHITE BLOOD COUNT 4.5 10^3/uL (4.5-11.0)
[2018-11-04] MEDS ORDERED: Barium Sulfate Susp 2.1% w/v, 2.0% w/w 450 mL Bottle PO ONE (07:34)
[2018-11-04 07:37] LABS: ALB/GLOB RATIO 1.1 (1.1-1.8); ALBUMIN 3.3 g/dL (3.0-4.8); ALT/SGPT 31 U/L (7-56); AST/SGOT 25 U/L (17-59); BLOOD UREA NITROGEN 8 mg/dL (7-21); CALCIUM 8.3 mg/dL (8.4-10.5); GFR NON-AFRICAN AMERICAN > 60
--- NOTE | 2018-11-04 08:16 | CP.PCM.PN ---
Subjective - Date & Time of Evaluation Date of Evaluation: 11/04/18 Time of Evaluation: 06:45 - Subjective Subjective: General Surgery Dr. Sanchez Pt seen and examined @bedside. No acute events overnight. Pt reports single episode sharp abd pain following BM. pain self-resolved. Pt denies F/C, N/V. tolerating diet. (+)BM/Flatus Objective - Vital Signs/Intake and Output Vital Signs (last 24 hours): Temp Pulse Resp BP Pulse Ox 98.1 F 60 20 139/84 98 11/03/18 21:53 11/03/18 21:53 11/03/18 21:53 11/03/18 21:53 11/03/18 21:53 Intake and Output: 11/04/18 11/04/18 06:59 18:59 Intake Total 2940 Balance 2940 - Medications Medications: Current Medications Metronidazole (Flagyl) 500 mg in 100 mls @ 100 mls/hr IVPB Q8 [facility]; Protocol Last Admin: 11/04/18 05:43 Dose: 100 mls/hr Ceftriaxone Sodium (Rocephin 1 Gram Ivpb) 1 gm in 100 mls @ 100 mls/hr IVPB DAILY [facility]; Protocol Last Admin: 11/03/18 10:24 Dose: 100 mls/hr Sodium Chloride (Sodium Chloride 0.9%) 1,000 mls @ 100 mls/hr IV .Q10H [facility] Last Admin: 11/03/18 21:05 Dose: 100 mls/hr Ketorolac Tromethamine (Toradol) 15 mg IVP Q6H PRN PRN Reason: Pain, moderate (4-7) Last Admin: 11/02/18 19:05 Dose: 15 mg Pantoprazole Sodium (Protonix Inj) 40 mg IVP DAILY [facility] Last Admin: 11/03/18 10:24 Dose: 40 mg - Labs Labs: 11/04/18 07:00 11/04/18 07:00 - Constitutional Appears: Non-toxic, No Acute Distress - Head Exam Head Exam: NORMAL INSPECTION - Eye Exam Eye Exam: Normal appearance - ENT Exam ENT Exam: Mucous Membranes Moist - Respiratory Exam Respiratory Exam: NORMAL BREATHING PATTERN. absent: Accessory Muscle Use, Respiratory Distress - Cardiovascular Exam Cardiovascular Exam: absent: Bradycardia, Tachycardia - GI/Abdominal Exam GI & Abdominal Exam: Soft, Tenderness (TTP LLQ). absent: Distended, Firm, Guarding, Rigid, Rebound - Extremities Exam Extremities Exam: Normal Inspection - Neurological Exam Neurological Exam: Alert, Awake, Oriented x3 - Psychiatric Exam Psychiatric exam: Normal Affect, Normal Mood - Skin Skin Exam: Dry, Intact, Normal Color, Warm Assessment and Plan - Assessment and Plan (Free Text) Assessment: 53 y/o M w/ sigmoid diverticulitis w/ microperforation Plan: - likely advance to FLD - cont IV Abx - cont pain management - Anti-emetics - no surgical intervention at this time. will continue to follow Pt discussed w/ Dr. Laura Bates PGY3
[2018-11-04] MEDS: cefTRIAXone 1 gm 1 GM/100 ML BAG IVPB SCH (11:13)
[2018-11-04] MEDS: Sodium Chloride 0.9% 1,000 ML IV SCH ×2 (11:20→18:50)
--- NOTE | 2018-11-04 14:12 | CP.PCM.PN ---
<Jesus Mays - Last Filed: 11/04/18 16:08> Subjective - Date & Time of Evaluation Date of Evaluation: 11/04/18 Time of Evaluation: 09:00 - Subjective Subjective: Jesus Mays DO PGy1 - Internal Medicine [facility]er - Medicine Progress Note Patient was seen and examined at bedside this morning Tolerating CLD well w/o abd discomfort n/v. Patient had BM this AM; no mild discomfort w/ BM however no complaints of melena/ hematochezia Objective - Vital Signs/Intake and Output Vital Signs (last 24 hours): Temp Pulse Resp BP Pulse Ox 97.7 F 56 L 18 117/70 99 11/04/18 06:00 11/04/18 06:00 11/04/18 06:00 11/04/18 06:00 11/04/18 06:00 Intake and Output: 11/04/18 11/04/18 06:59 18:59 Intake Total 2940 Balance 2940 - Medications Medications: Current Medications Metronidazole (Flagyl) 500 mg in 100 mls @ 100 mls/hr IVPB Q8 [facility]; Protocol Last Admin: 11/04/18 05:43 Dose: 100 mls/hr Ceftriaxone Sodium (Rocephin 1 Gram Ivpb) 1 gm in 100 mls @ 100 mls/hr IVPB DAILY [facility]; Protocol Last Admin: 11/04/18 11:13 Dose: 100 mls/hr Sodium Chloride (Sodium Chloride 0.9%) 1,000 mls @ 100 mls/hr IV .Q10H [facility] Last Admin: 11/04/18 11:20 Dose: 100 mls/hr Ketorolac Tromethamine (Toradol) 15 mg IVP Q6H PRN PRN Reason: Pain, moderate (4-7) Last Admin: 11/02/18 19:05 Dose: 15 mg Pantoprazole Sodium (Protonix Inj) 40 mg IVP DAILY [facility] Last Admin: 11/04/18 10:09 Dose: 40 mg - Labs Labs: 11/04/18 07:00 11/04/18 07:00 - Constitutional Appears: Well, Non-toxic, No Acute Distress - Head Exam Head Exam: ATRAUMATIC, NORMOCEPHALIC - Eye Exam Eye Exam: EOMI, Normal appearance, PERRL - Respiratory Exam Respiratory Exam: Clear to Ausculation Bilateral, NORMAL BREATHING PATTERN - Cardiovascular Exam Cardiovascular Exam: RRR. absent: Murmur - GI/Abdominal Exam GI & Abdominal Exam: Soft, Tenderness (mild to no Left sided tenderness), Normal Bowel Sounds - Neurological Exam Neurological Exam: Alert, Oriented x3 - Skin Skin Exam: Dry, Intact, Warm Assessment and Plan - Assessment and Plan (Free Text) Assessment: 53M w/ PMH GERD presented to [facility] on 11/02 w/ CC of Abd Pain admitted for Diverticulitis Diverticulitis 11/02 - CT AP - Acute diverticulitis distal descending colon and proximal sigmoid colon. Micro perforations. No drainable collection, significant loculated air or free air. Splenomegaly. 11/04 CTAP w/ PO Sigmoid colon diverticulosis with pericolonic fat infiltration consistent with acute diverticulitis. No abscess or pneumoperitoneum. Hepatosplenomegaly. On Full liquid diet at this time Will advance diet as per GI reccs at this time C/w Rocephin/ Flagyl Toradol PRN Pain Protonix IVP Daily GI Following, Surgery Following Ppx: Scd Ptx Diet: NPO Dispo: Will continue inpatient management on med/surg at this time Patient was seen, examined, and discussed w/ attending Dr. Florin Mays DO PGY1 <Ellen Rahman - Last Filed: 11/04/18 17:55> Objective - Vital Signs/Intake and Output Vital Signs (last 24 hours): Temp Pulse Resp BP Pulse Ox 97.7 F 60 18 112/69 96 11/04/18 14:00 11/04/18 14:00 11/04/18 14:00 11/04/18 14:00 11/04/18 14:00 Intake and Output: 11/04/18 11/04/18 06:59 18:59 Intake Total 2940 Balance 2940 - Medications Medications: Current Medications Metronidazole (Flagyl) 500 mg in 100 mls @ 100 mls/hr IVPB Q8 [facility]; Protocol Last Admin: 11/04/18 15:24 Dose: 100 mls/hr Ceftriaxone Sodium (Rocephin 1 Gram Ivpb) 1 gm in 100 mls @ 100 mls/hr IVPB DAILY [facility]; Protocol Last Admin: 11/04/18 11:13 Dose: 100 mls/hr Sodium Chloride (Sodium Chloride 0.9%) 1,000 mls @ 100 mls/hr IV .Q10H COUNTS INCLUDE 234 BEDS AT THE [facility] Last Admin: 11/04/18 11:20 Dose: 100 mls/hr Ketorolac Tromethamine (Toradol) 15 mg IVP Q6H PRN PRN Reason: Pain, moderate (4-7) Last Admin: 11/02/18 19:05 Dose: 15 mg Pantoprazole Sodium (Protonix Inj) 40 mg IVP DAILY [facility]CLUDE 234 BEDS AT [facility] Last Admin: 11/04/18 10:09 Dose: 40 mg - Labs Labs: 11/04/18 07:00 11/04/18 07:00 Attending/Attestation - Attestation I have personally seen and examined this patient.: Yes I have fully participated in the care of the patient.: Yes I have reviewed all pertinent clinical information, including history, physical exam and plan: Yes Notes (Text): 11/04/18 17:54 Attending note; Patient seen and examined with resident. Patient is alert and awake. Had one episode of left lower quadrant pain with bowel movement this morning. Currently pain-free. Patient is drinking oral contrast for repeat CAT scan. Patient was evaluated by GI today. Denies any fevers, chills. Denies any nausea, vomiting. Denies any urinary, bowel symptoms. Patient is a 53-year-old male with past medical history of GERD is admitted for left lower quadrant pain. 1. Left-sided abdominal pain; CT abdomen and pelvis showed Acute diverticulitis distal descending colon and proximal sigmoid colon. Micro perforations. No drainable collection, no significant loculated air or free air. Currently on clear liquid diet. On IV Rocephin and Flagyl. Patient is drinking p.o. contrast for repeat CT abdomen and pelvis. 2. Acute diverticulitis with microperforation ;surgery evaluation appreciated. No plan for surgical procedure at this time. 3. Active smoking; smoking cessation is strongly advised. 4. Chronic alcohol use; alcohol cessation is strongly advised. 5. GERD; continue IV Protonix. 6. Pain management with IV Toradol as needed. 7. Noncompliance with follow-up; patient agreed to follow-up with PMD and product handler upon discharge. Repeat CT abdomen and pelvis before advancing diet. Diagnosis, treatment plan discussed with patient and patient's in detail.
--- NOTE | 2018-11-04 14:13 | CP.PCM.PN ---
<FideliajamisonIsaac gray - Last Filed: 11/04/18 14:10> Subjective - Date & Time of Evaluation Date of Evaluation: 11/04/18 Time of Evaluation: 08:15 - Subjective Subjective: PGY6 GI Fellow Progress Note Patient seen and examined bedside this morning. The patient states that he is feeling much better today and is eager to eat. Passed multiple BM which were loose and associated with some mild LLQ cramping pain. No bloody stool. 12 system ROS performed and negative except where stated Objective - Vital Signs/Intake and Output Vital Signs (last 24 hours): Temp Pulse Resp BP Pulse Ox 97.7 F 56 L 18 117/70 99 11/04/18 06:00 11/04/18 06:00 11/04/18 06:00 11/04/18 06:00 11/04/18 06:00 Intake and Output: 11/04/18 11/04/18 06:59 18:59 Intake Total 2940 Balance 2940 - Medications Medications: Current Medications Metronidazole (Flagyl) 500 mg in 100 mls @ 100 mls/hr IVPB Q8 [facility]; Protocol Last Admin: 11/04/18 05:43 Dose: 100 mls/hr Ceftriaxone Sodium (Rocephin 1 Gram Ivpb) 1 gm in 100 mls @ 100 mls/hr IVPB DAILY [facility]; Protocol Last Admin: 11/04/18 11:13 Dose: 100 mls/hr Sodium Chloride (Sodium Chloride 0.9%) 1,000 mls @ 100 mls/hr IV .Q10H [facility] Last Admin: 11/04/18 11:20 Dose: 100 mls/hr Ketorolac Tromethamine (Toradol) 15 mg IVP Q6H PRN PRN Reason: Pain, moderate (4-7) Last Admin: 11/02/18 19:05 Dose: 15 mg Pantoprazole Sodium (Protonix Inj) 40 mg IVP DAILY [facility] Last Admin: 11/04/18 10:09 Dose: 40 mg - Labs Labs: 11/04/18 07:00 11/04/18 07:00 - Constitutional Appears: Non-toxic, No Acute Distress - Eye Exam Eye Exam: EOMI, PERRL - ENT Exam ENT Exam: Mucous Membranes Moist - Respiratory Exam Respiratory Exam: Clear to Ausculation Bilateral. absent: Rales, Rhonchi, Whe ezes - Cardiovascular Exam Cardiovascular Exam: RRR, +S1, +S2 - GI/Abdominal Exam GI & Abdominal Exam: Soft, Normal Bowel Sounds. absent: Distended, Firm, Guarding, Rigid, Tenderness, Mass - Extremities Exam Extremities Exam: Normal Inspection. absent: Pedal Edema - Neurological Exam Neurological Exam: Alert, Awake, Oriented x3 - Psychiatric Exam Psychiatric exam: Normal Affect, Normal Mood - Skin Skin Exam: Dry, Warm Assessment and Plan - Assessment and Plan (Free Text) Assessment: Patient is a 53yo male with PMHx significant for diverticulosis, vertigo, questionable BPH, daily EtOH use, tobacco use who presented to the ED with abdominal pain -Descending/sigmoid diverticulitis complicated by microperforation -Hepatic steatosis - likely a result of chronic EtOH use -Chronic EtOH and tobacco use Plan: -Awaiting repeat CT with PO contrast - if improved and no obvious fluid collection, suggest advancing diet as tolerated -Will require 10-14 days of antibiotic therapy -Appreciate surgical input -EtOH and tobacco cessation stressed -Patient will benefit from colonoscopy for further evaluation ~8 weeks after resolution of current event <Tami Jules V - Last Filed: 11/04/18 23:56> Objective - Vital Signs/Intake and Output Vital Signs (last 24 hours): Temp Pulse Resp BP Pulse Ox 97.7 F 60 20 121/77 96 11/04/18 22:00 11/04/18 22:00 11/04/18 22:00 11/04/18 22:00 11/04/18 22:00 Intake and Output: 11/04/18 11/05/18 18:59 06:59 Intake Total 300 Balance 300 - Medications Medications: Current Medications Metronidazole (Flagyl) 500 mg in 100 mls @ 100 mls/hr IVPB Q8 [facility]; Protocol Last Admin: 11/04/18 21:29 Dose: 100 mls/hr Ceftriaxone Sodium (Rocephin 1 Gram Ivpb) 1 gm in 100 mls @ 100 mls/hr IVPB DAILY [facility]; Protocol Last Admin: 11/04/18 11:13 Dose: 100 mls/hr Sodium Chloride (Sodium Chloride 0.9%) 1,000 mls @ 100 mls/hr IV .Q10H [facility] Last Admin: 11/04/18 18:50 Dose: 100 mls/hr Ketorolac Tromethamine (Toradol) 15 mg IVP Q6H PRN PRN Reason: Pain, moderate (4-7) Last Admin: 11/02/18 19:05 Dose: 15 mg Pantoprazole Sodium (Protonix Inj) 40 mg IVP DAILY [facility] Last Admin: 11/04/18 10:09 Dose: 40 mg - Labs Labs: 11/04/18 07:00 11/04/18 07:00 Attending/Attestation - Attestation I have personally seen and examined this patient.: Yes I have fully participated in the care of the patient.: Yes I have reviewed all pertinent clinical information, including history, physical exam and plan: Yes Notes (Text): This is an addendum to the GI progress report dictated by the fellow. The patie nt was seen and evaluated along with the family earlier. Repeat CT scan was reviewed. Diet has been advanced. Continue the antibiotics and complete the course. Patient would need a elective colonoscopy. Patient was advised to follow-up in office and also with the PCP 11/04/18 23:55
--- NOTE | 2018-11-04 14:32 | CT ---
Date of service: 11/04/2018 PROCEDURE: CT Abdomen and Pelvis without intravenous contrast HISTORY: f/u perf diverticulitis COMPARISON: None. TECHNIQUE: Technique. Contrast dose: Radiation dose: Total exam DLP = 879.79 mGy-cm. This CT exam was performed using one or more of the following dose reduction techniques: Automated exposure control, adjustment of the mA and/or kV according to patient size, and/or use of iterative reconstruction technique. FINDINGS: LOWER THORAX: Unremarkable. LIVER: Hepatomegaly. GALLBLADDER AND BILE DUCTS: Unremarkable. PANCREAS: Unremarkable. No gross lesion or ductal dilatation. SPLEEN: Splenomegaly. ADRENALS: Unremarkable. No mass. KIDNEYS AND URETERS: Unremarkable. No hydronephrosis. No solid mass. VASCULATURE: Unremarkable. No aortic aneurysm. No aortic atherosclerotic calcification or mural plaque present. BOWEL: Sigmoid colon diverticulosis with pericolonic fat infiltration consistent with acute diverticulitis. No abscess or pneumoperitoneum. APPENDIX: Unremarkable. Normal appendix. PERITONEUM: Unremarkable. No free fluid. No free air. LYMPH NODES: Unremarkable. No enlarged lymph nodes. BLADDER: Unremarkable. REPRODUCTIVE: Unremarkable. BONES: No acute fracture. OTHER FINDINGS: None. IMPRESSION: Sigmoid colon diverticulosis with pericolonic fat infiltration consistent with acute diverticulitis. No abscess or pneumoperitoneum. Hepatosplenomegaly.
[2018-11-04 22:56] VITALS: RESP 20
[2018-11-05] MEDS: metroNIDAZOLE IV 500 mg/100 ml 500 MG/100 ML BAG IVPB SCH (05:26)
[2018-11-05 07:22] LABS: BASO # 0.03 K/mm3 (0.0-2.0); BASO % 0.6 % (0.0-3.0); EOS # 0.1 (0.0-0.7); EOS % 1.7 % (1.5-5.0); HEMOGLOBIN 13.8 g/dL (14.0-18.0); LYMPH # 1.6 (1.2-3.4); LYMPH % 29.7 % (22.0-35.0); MEAN CELL VOLUME 85.7 fl (80.0-105.0); MEAN CORPUSCULAR HEMOGLOBIN 30.4 pg (25.0-35.0); MEAN CORPUSCULAR HGB CONC 35.5 g/dl (31.0-37.0); MEAN PLATELET VOLUME 8.5 fl (7.0-11.0); MONO # 0.6 (0.1-0.6); MONO % 11.8 % (1.0-6.0); RBC 4.54 10^6/uL (3.5-6.1); RED CELL DISTRIBUTION WIDTH 12.1 % (11.5-14.5); WHITE BLOOD COUNT 5.4 10^3/uL (4.5-11.0)
--- NOTE | 2018-11-05 07:31 | CP.PCM.PN ---
Subjective - Date & Time of Evaluation Date of Evaluation: 11/05/18 Time of Evaluation: 06:45 - Subjective Subjective: General Surgery Dr. Sanchez Pt seen and examined @bedside. No acute events overnight. Pt reports complete resolution of abd pain. denies F/C, N/V. tolerating diet. (+)BM/Flatus. Objective - Vital Signs/Intake and Output Vital Signs (last 24 hours): Temp Pulse Resp BP Pulse Ox 97.7 F 60 20 121/77 96 11/04/18 22:00 11/04/18 22:00 11/04/18 22:00 11/04/18 22:00 11/04/18 22:00 Intake and Output: 11/05/18 11/05/18 06:59 18:59 Intake Total 300 Balance 300 - Medications Medications: Current Medications Ceftriaxone Sodium (Rocephin 1 Gram Ivpb) 1 gm in 100 mls @ 100 mls/hr IVPB DAILY [facility]; Protocol Last Admin: 11/04/18 11:13 Dose: 100 mls/hr Sodium Chloride (Sodium Chloride 0.9%) 1,000 mls @ 100 mls/hr IV .Q10H [facility] Last Admin: 11/04/18 18:50 Dose: 100 mls/hr Ketorolac Tromethamine (Toradol) 15 mg IVP Q6H PRN PRN Reason: Pain, moderate (4-7) Last Admin: 11/02/18 19:05 Dose: 15 mg Pantoprazole Sodium (Protonix Inj) 40 mg IVP DAILY [facility] Last Admin: 11/04/18 10:09 Dose: 40 mg - Labs Labs: 11/04/18 07:00 11/04/18 07:00 - Constitutional Appears: Non-toxic, No Acute Distress - Head Exam Head Exam: NORMAL INSPECTION - Eye Exam Eye Exam: Normal appearance - ENT Exam ENT Exam: Mucous Membranes Moist - Respiratory Exam Respiratory Exam: NORMAL BREATHING PATTERN. absent: Accessory Muscle Use, Respiratory Distress - Cardiovascular Exam Cardiovascular Exam: REGULAR RHYTHM. absent: Bradycardia, Tachycardia - GI/Abdominal Exam GI & Abdominal Exam: Soft. absent: Distended, Firm, Guarding, Tenderness, Rebound - Extremities Exam Extremities Exam: Normal Inspection - Neurological Exam Neurological Exam: Alert, Awake, Oriented x3 - Psychiatric Exam Psychiatric exam: Normal Affect, Normal Mood - Skin Skin Exam: Dry, Intact, Normal Color, Warm Assessment and Plan - Assessment and Plan (Free Text) Assessment: 53 y/o M w/ diverticulitis w/ microperf Plan: - Advance diet as tolerated - transition to PO Abx - cont non-narcotic pain management - pt cleared for discharge from surgical standpoint - follow up w/ GI in 4-6weeks for colonoscopy - follow up w/ Surgery in 1-2weeks Pt discussed w/ Dr. Laura Bates PGY3
[2018-11-05 07:50] LABS: URINE BILIRUBIN NEGATIVE (NEGATIVE); URINE BLOOD NEGATIVE (NEGATIVE); URINE GLUCOSE (UA) NEGATIVE (NEGATIVE); URINE LEUKOCYTE ESTERASE NEGATIVE Leu/uL (NEGATIVE); URINE PROTEIN NEGATIVE mg/dL (<30 mg/dL); URINE UROBILINOGEN 0.2 E.U./dL (<1 E.U./dL)
[2018-11-05 07:54] LABS: URINE APPEARANCE CLEAR (CLEAR); URINE COLOR YELLOW (YELLOW)
[2018-11-05 08:06] LABS: ALB/GLOB RATIO 1.1 (1.1-1.8); ALBUMIN 3.6 g/dL (3.0-4.8); ALT/SGPT 35 U/L (7-56); AST/SGOT 35 U/L (17-59); BLOOD UREA NITROGEN 9 mg/dL (7-21); CALCIUM 8.6 mg/dL (8.4-10.5); GFR NON-AFRICAN AMERICAN > 60
[2018-11-05 10:48] VITALS: BP 108/69; PULSE 59; TEMP 97.8; O2SAT 97
--- NOTE | 2018-11-05 11:17 | CP.PCM.DIS ---
<Franklyn Ventura - Last Filed: 11/05/18 14:09> Provider - Provider Date of Admission: 11/02/18 04:35 Attending physician: Fatoumata Montes MD Consults: 11/02/18 06:14 Gastroenterology Consult Routine Comment: Consulting Provider: Tami Jules V Consulting Physician: Tami Jules V Reason for Consult: sigmoid diverticulitis 11/02/18 11:24 General Surgery Consult Routine Comment: Consulting Provider: Lucho Sanchez Consulting Physician: Lucho Sanchez Reason for Consult: diverticulitis with microperforation Time Spent in preparation of Discharge (in minutes): 45 Hospital Course - Lab Results Lab Results: Micro Results 11/02/18 04:46 Blood Blood Culture - Preliminary NO GROWTH AFTER 3 DAYS 11/02/18 04:30 Blood Blood Culture - Preliminary NO GROWTH AFTER 3 DAYS Most Recent Lab Values WBC 5.4 10^3/uL (4.5-11.0) 11/05/18 07:00 RBC 4.54 10^6/uL (3.5-6.1) 11/05/18 07:00 Hgb 13.8 g/dL (14.0-18.0) L 11/05/18 07:00 Hct 38.9 % (42.0-52.0) L 11/05/18 07:00 MCV 85.7 fl (80.0-105.0) 11/05/18 07:00 MCH 30.4 pg (25.0-35.0) 11/05/18 07:00 MCHC 35.5 g/dl (31.0-37.0) 11/05/18 07:00 RDW 12.1 % (11.5-14.5) 11/05/18 07:00 Plt Count 154 10^3/uL (120.0-450.0) 11/05/18 07:00 MPV 8.5 fl (7.0-11.0) 11/05/18 07:00 Neut % (Auto) 56.2 % (50.0-68.0) 11/05/18 07:00 Lymph % (Auto) 29.7 % (22.0-35.0) 11/05/18 07:00 Laurens % (Auto) 11.8 % (1.0-6.0) H 11/05/18 07:00 Eos % (Auto) 1.7 % (1.5-5.0) 11/05/18 07:00 Baso % (Auto) 0.6 % (0.0-3.0) 11/05/18 07:00 Lymph # (Auto) 1.6 (1.2-3.4) 11/05/18 07:00 Laurens # (Auto) 0.6 (0.1-0.6) 11/05/18 07:00 Eos # (Auto) 0.1 (0.0-0.7) 11/05/18 07:00 Baso # (Auto) 0.03 K/mm3 (0.0-2.0) 11/05/18 07:00 Absolute Neuts (auto) 3.01 (1.4-6.5) 11/05/18 07:00 Sodium 140 mmol/L (132-148) 11/05/18 07:00 Potassium 4.2 mmol/L (3.6-5.0) 11/05/18 07:00 Chloride 109 mmol/L (98-107) H 11/05/18 07:00 Carbon Dioxide 24 mmol/L (21-33) 11/05/18 07:00 Anion Gap 11 (10-20) 11/05/18 07:00 BUN 9 mg/dL (7-21) 11/05/18 07:00 Creatinine 0.9 mg/dl (0.8-1.5) 11/05/18 07:00 Est GFR ( Amer) > 60 11/05/18 07:00 Est GFR (Non-Af Amer) > 60 11/05/18 07:00 Random Glucose 103 mg/dL (70-110) 11/05/18 07:00 Calcium 8.6 mg/dL (8.4-10.5) 11/05/18 07:00 Phosphorus 3.2 mg/dL (2.5-4.5) 11/05/18 07:00 Magnesium 2.0 mg/dL (1.7-2.2) 11/05/18 07:00 Total Bilirubin 0.4 mg/dL (0.2-1.3) 11/05/18 07:00 AST 35 U/L (17-59) 11/05/18 07:00 ALT 35 U/L (7-56) 11/05/18 07:00 Alkaline Phosphatase 81 U/L (38-126) 11/05/18 07:00 Total Protein 6.9 g/dL (5.8-8.3) 11/05/18 07:00 Albumin 3.6 g/dL (3.0-4.8) 11/05/18 07:00 Globulin 3.3 gm/dL 11/05/18 07:00 Albumin/Globulin Ratio 1.1 (1.1-1.8) 11/05/18 07:00 Lipase 59 U/L (23-300) 11/02/18 01:47 Urine Color Yellow (YELLOW) 11/05/18 07:11 Urine Appearance Clear (CLEAR) 11/05/18 07:11 Urine pH 6.0 (4.7-8.0) 11/05/18 07:11 Ur Specific Henderson 1.010 (1.005-1.035) 11/05/18 07:11 Urine Protein Negative mg/dL (<30 mg/dL) 11/05/18 07:11 Urine Glucose (UA) Negative mg/dL (NEGATIVE) 11/05/18 07:11 Urine Ketones Negative mg/dL (NEGATIVE) 11/05/18 07:11 Urine Blood Negative (NEGATIVE) 11/05/18 07:11 Urine Nitrate Negative (NEGATIVE) 11/05/18 07:11 Urine Bilirubin Negative (NEGATIVE) 11/05/18 07:11 Urine Urobilinogen 0.2 E.U./dL (<1 E.U./dL) 11/05/18 07:11 Ur Leukocyte Esterase Negative Gloria/uL (NEGATIVE) 11/05/18 07:11 - Hospital Course Hospital Course: 53 year old male, whose past medical history includes Esophagitis presents to the emergency department with left lower quadrant abdominal pain that has been going on for a few days. CT A/P w/ contrast:Mild prostatomegaly.Prostatic calcifications are noted.Mild diffuse thickening of the bladder.Colonic diverticulosis. Acute proximal sigmoid diverticulitis without perforation or abscess formation. Patient admitted for diverticulitis. IV ceftriaxone/flagyl, NPO, pain management, IVF NS initiated. Patient was seen by surgery and recommended conservative treatment. Patient afebrile, no leukocytosis. Patient was followed by GI who recommended continue current treatment. Repaet CT A/P w/p.o. contrast revealed diverticulitis with no signs of pneumoperitonium or abcess formation. Toady, patient tolerated hi sregular diet, was hemodynamically stable, afebrile, no leukocytosis and clinically optimized for discharge home today. Additional discharge instructions as below. Discharge Exam - Head Exam Head Exam: NORMAL INSPECTION - Eye Exam Eye Exam: EOMI, Normal appearance, PERRL Pupil Exam: NORMAL ACCOMODATION, PERRL - ENT Exam ENT Exam: Mucous Membranes Moist - Neck Exam Neck exam: Normal Inspection - Respiratory Exam Respiratory Exam: Clear to PA & Lateral, NORMAL BREATHING PATTERN - Cardiovascular Exam Cardiovascular Exam: REGULAR RHYTHM, +S1, +S2 - GI/Abdominal Exam GI & Abdominal Exam: Normal Bowel Sounds, Soft - Extremities Exam Extremities exam: normal capillary refill, pedal pulses present - Back Exam Back exam: FULL ROM - Neurological Exam Neurological exam: Alert, CN II-XII Intact, Normal Gait, Oriented x3, Reflexes Normal - Psychiatric Exam Psychiatric exam: Normal Affect, Normal Mood - Skin Skin Exam: Dry, Intact, Normal Color, Warm Discharge Plan - Discharge Medications Prescriptions: Ciprofloxacin [Cipro] 500 mg PO Q12 10 Days #20 tab Metronidazole [Flagyl] 500 mg PO Q8H 10 Days #30 tablet - Follow Up Plan Condition: STABLE Disposition: HOME/ ROUTINE Instructions: Gastritis, Diverticulitis (DC), [place] Diet, Gastritis (DC) Additional Instructions: -Please follow up with your PMD Dr Juarez -Please follow up with clinical applications manager Dr Jules for an elective colonoscopy in 4-6 weeks after discharge -Please follow up with surgeon Dr Sanchez in 1-2 weeks after discharge -Please take antibiotics cipro and flagyl as prescribed -Return to the emergency department if symptoms recur Referrals: Jay Juarez MD [Medical Doctor] - Tami Jules MD [Medical Doctor] - Lucho Sanchez MD [Staff Provider] - <Fatoumata Montes - Last Filed: 11/05/18 14:41> Provider - Provider Date of Admission: 11/02/18 04:35 Attending physician: Fatoumata Montes MD Consults: 11/02/18 06:14 Gastroenterology Consult Routine Comment: Consulting Provider: Tami Jules V Consulting Physician: Tami Jules V Reason for Consult: sigmoid diverticulitis 11/02/18 11:24 General Surgery Consult Routine Comment: Consulting Provider: Lucho Sanchez Consulting Physician: Lucho Sanchez Reason for Consult: diverticulitis with microperforation Hospital Course - Lab Results Lab Results: Micro Results 11/02/18 04:46 Blood Blood Culture - Preliminary NO GROWTH AFTER 3 DAYS 11/02/18 04:30 Blood Blood Culture - Preliminary NO GROWTH AFTER 3 DAYS Most Recent Lab Values WBC 5.4 10^3/uL (4.5-11.0) 11/05/18 07:00 RBC 4.54 10^6/uL (3.5-6.1) 11/05/18 07:00 Hgb 13.8 g/dL (14.0-18.0) L 11/05/18 07:00 Hct 38.9 % (42.0-52.0) L 11/05/18 07:00 MCV 85.7 fl (80.0-105.0) 11/05/18 07:00 MCH 30.4 pg (25.0-35.0) 11/05/18 07:00 MCHC 35.5 g/dl (31.0-37.0) 11/05/18 07:00 RDW 12.1 % (11.5-14.5) 11/05/18 07:00 Plt Count 154 10^3/uL (120.0-450.0) 11/05/18 07:00 MPV 8.5 fl (7.0-11.0) 11/05/18 07:00 Neut % (Auto) 56.2 % (50.0-68.0) 11/05/18 07:00 Lymph % (Auto) 29.7 % (22.0-35.0) 11/05/18 07:00 Laurens % (Auto) 11.8 % (1.0-6.0) H 11/05/18 07:00 Eos % (Auto) 1.7 % (1.5-5.0) 11/05/18 07:00 Baso % (Auto) 0.6 % (0.0-3.0) 11/05/18 07:00 Lymph # (Auto) 1.6 (1.2-3.4) 11/05/18 07:00 Laurens # (Auto) 0.6 (0.1-0.6) 11/05/18 07:00 Eos # (Auto) 0.1 (0.0-0.7) 11/05/18 07:00 Baso # (Auto) 0.03 K/mm3 (0.0-2.0) 11/05/18 07:00 Absolute Neuts (auto) 3.01 (1.4-6.5) 11/05/18 07:00 Sodium 140 mmol/L (132-148) 11/05/18 07:00 Potassium 4.2 mmol/L (3.6-5.0) 11/05/18 07:00 Chloride 109 mmol/L (98-107) H 11/05/18 07:00 Carbon Dioxide 24 mmol/L (21-33) 11/05/18 07:00 Anion Gap 11 (10-20) 11/05/18 07:00 BUN 9 mg/dL (7-21) 11/05/18 07:00 Creatinine 0.9 mg/dl (0.8-1.5) 11/05/18 07:00 Est GFR ( Amer) > 60 11/05/18 07:00 Est GFR (Non-Af Amer) > 60 11/05/18 07:00 Random Glucose 103 mg/dL (70-110) 11/05/18 07:00 Calcium 8.6 mg/dL (8.4-10.5) 11/05/18 07:00 Phosphorus 3.2 mg/dL (2.5-4.5) 11/05/18 07:00 Magnesium 2.0 mg/dL (1.7-2.2) 11/05/18 07:00 Total Bilirubin 0.4 mg/dL (0.2-1.3) 11/05/18 07:00 AST 35 U/L (17-59) 11/05/18 07:00 ALT 35 U/L (7-56) 11/05/18 07:00 Alkaline Phosphatase 81 U/L (38-126) 11/05/18 07:00 Total Protein 6.9 g/dL (5.8-8.3) 11/05/18 07:00 Albumin 3.6 g/dL (3.0-4.8) 11/05/18 07:00 Globulin 3.3 gm/dL 11/05/18 07:00 Albumin/Globulin Ratio 1.1 (1.1-1.8) 11/05/18 07:00 Lipase 59 U/L (23-300) 11/02/18 01:47 Urine Color Yellow (YELLOW) 11/05/18 07:11 Urine Appearance Clear (CLEAR) 11/05/18 07:11 Urine pH 6.0 (4.7-8.0) 11/05/18 07:11 Ur Specific Henderson 1.010 (1.005-1.035) 11/05/18 07:11 Urine Protein Negative mg/dL (<30 mg/dL) 11/05/18 07:11 Urine Glucose (UA) Negative mg/dL (NEGATIVE) 11/05/18 07:11 Urine Ketones Negative mg/dL (NEGATIVE) 11/05/18 07:11 Urine Blood Negative (NEGATIVE) 11/05/18 07:11 Urine Nitrate Negative (NEGATIVE) 11/05/18 07:11 Urine Bilirubin Negative (NEGATIVE) 11/05/18 07:11 Urine Urobilinogen 0.2 E.U./dL (<1 E.U./dL) 11/05/18 07:11 Ur Leukocyte Esterase Negative Gloria/uL (NEGATIVE) 11/05/18 07:11 Attending/Attestation - Attestation I have personally seen and examined this patient.: Yes I have fully participated in the care of the patient.: Yes I have reviewed all pertinent clinical information, including history, physical exam and plan: Yes Notes (Text): 11/05/18 14:37 53 year old male with past medical history of GERD who presented with LLQ pain; found to have acute diverticulitis of distal descending colon and proximal sigmoid colon with microperforations. He was started on iv antibiotics and analgesics. He was seen by GI and surgery. Repeat CT abd/pelvis yesterday was reviewed as above. Overall his symptoms improved and his diet was advanced which he is tolerating. Patient is discharged home to follow up with pmd. Follow up with surgery and GI, will need elective colonoscopy. Continue with po antibiotics as prescribed. Counselled on smoking cessation. Counselled on alcohol abstinence. Fatoumata Montes MD Hospitalist.
[2018-11-05] MEDS: cefTRIAXone 1 gm 1 GM/100 ML BAG IVPB SCH (11:35)
--- NOTE | 2018-11-05 12:22 | CP.PCM.PN ---
<Jamison Mays - Last Filed: 11/05/18 12:23> Subjective - Date & Time of Evaluation Date of Evaluation: 11/05/18 Time of Evaluation: 07:00 - Subjective Subjective: PGY5 GI Follow-up note PT seen and examined bedside denies any abd pain denies any fever, chills or diaphoresis tolerated diet ROS: 12 point ROS conducted, neg other than above Objective - Vital Signs/Intake and Output Vital Signs (last 24 hours): Temp Pulse Resp BP Pulse Ox 97.8 F 59 L 20 108/69 97 11/05/18 07:00 11/05/18 07:00 11/05/18 07:00 11/05/18 07:00 11/05/18 07:00 Intake and Output: 11/05/18 11/05/18 06:59 18:59 Intake Total 300 Balance 300 - Medications Medications: Current Medications Sodium Chloride (Sodium Chloride 0.9%) 1,000 mls @ 100 mls/hr IV .Q10H [facility] Last Admin: 11/04/18 18:50 Dose: 100 mls/hr Ketorolac Tromethamine (Toradol) 15 mg IVP Q6H PRN PRN Reason: Pain, moderate (4-7) Last Admin: 11/02/18 19:05 Dose: 15 mg Pantoprazole Sodium (Protonix Inj) 40 mg IVP DAILY [facility] Last Admin: 11/05/18 10:26 Dose: 40 mg - Labs Labs: 11/05/18 07:00 11/05/18 07:00 - Constitutional Appears: No Acute Distress - Head Exam Head Exam: ATRAUMATIC, NORMOCEPHALIC - Eye Exam Eye Exam: Normal appearance - ENT Exam ENT Exam: Mucous Membranes Moist, Normal Exam - Neck Exam Neck Exam: Normal Inspection - Respiratory Exam Respiratory Exam: Clear to Ausculation Bilateral, NORMAL BREATHING PATTERN. absent: Rales, Rhonchi, Wheezes, Respiratory Distress - Cardiovascular Exam Cardiovascular Exam: REGULAR RHYTHM, +S1, +S2 - GI/Abdominal Exam GI & Abdominal Exam: Soft, Tenderness (slight ), Normal Bowel Sounds. absent: Distended, Firm, Guarding, Rigid, Organomegaly, Rebound - Extremities Exam Extremities Exam: absent: Joint Swelling, Pedal Edema - Neurological Exam Neurological Exam: Alert, Awake, Oriented x3 - Psychiatric Exam Psychiatric exam: Normal Affect, Normal Mood - Skin Skin Exam: Dry, Intact, Normal Color, Warm Assessment and Plan - Assessment and Plan (Free Text) Assessment: Patient is a 53yo male with PMHx significant for diverticulosis, vertigo, questionable BPH, daily EtOH use, tobacco use who presented to the ED with abdominal pain -Descending/sigmoid diverticulitis complicated by microperforation -Hepatic steatosis - likely a result of chronic EtOH use -Chronic EtOH and tobacco use Plan: -repeat Ct did not reveal any obvious fluid collection -advance diet as tolerated -okay with cipro flagyl as outpt for 10 days -Appreciate surgical input -EtOH and tobacco cessation stressed -Patient will benefit from colonoscopy for further evaluation ~8 weeks after resolution of current event -follow-up with DR jules as an oupt D/W Dr. Jules <Tami Jules V - Last Filed: 11/06/18 00:52> Objective - Vital Signs/Intake and Output Vital Signs (last 24 hours): Temp Pulse Resp BP Pulse Ox 97.8 F 59 L 20 108/69 97 11/05/18 07:00 11/05/18 07:00 11/05/18 07:00 11/05/18 07:00 11/05/18 07:00 - Labs Labs: 11/05/18 07:00 11/05/18 07:00 Attending/Attestation - Attestation I have personally seen and examined this patient.: Yes I have fully participated in the care of the patient.: Yes I have reviewed all pertinent clinical information, including history, physical exam and plan: Yes Notes (Text): This is an addendum to the GI progress note dictated by the fellow. The patient was seen and evaluated along with the fellow. Patient is tolerating diet. Feels much better. Patient wanted to leave. Patient need to complete antibiotics for total of 14 days. Patient would need elective colonoscopy Discussed with patient at length regarding the possibility of another perforation. Risk benefits explained. Patient is advised to discuss with the surgeon surgeon regarding the surgery . 11/06/18 00:52
== END 2018-11-05 12:22 | disposition home or self-care (01) | DRG 392 ==
LOC: ED 01:11 → ERH 04:35 → 5RSO 06:07
PROVIDERS: ADMIT Internal Medicine; ATTEND Internal Medicine
DX: K57.20 Diverticulitis of large intestine with perforation and abscess without bleeding (principal); R10.30 Lower abdominal pain, unspecified; K59.00 Constipation, unspecified; N40.0 Benign prostatic hyperplasia without lower urinary tract symptoms; K21.9 Gastro-esophageal reflux disease without esophagitis; F17.210 Nicotine dependence, cigarettes, uncomplicated; K21.0 Gastro-esophageal reflux disease with esophagitis; K44.9 Diaphragmatic hernia without obstruction or gangrene; K29.70 Gastritis, unspecified, without bleeding; Z72.89 Other problems related to lifestyle; Z83.3 Family history of diabetes mellitus; Z82.49 Family history of ischemic heart disease and other diseases of the circulatory system; K22.2 Esophageal obstruction; K62.1 Rectal polyp; K64.8 Other hemorrhoids; K76.0 Fatty (change of) liver, not elsewhere classified; N42.89 Other specified disorders of prostate; Z80.42 Family history of malignant neoplasm of prostate; Z91.19 Patient's noncompliance with other medical treatment and regimen; F14.11 Cocaine abuse, in remission